=== PATIENT | female | born 1935 | race Caucasian/White ===

== ENCOUNTER 2016-11-07 09:18 | Observation (INO) | payer OTHER ==
[2016-11-07] VITALS (11 sets, daily range): BP systolic 107–144; BP diastolic 57–77; PULSE 61–82; RESP 14–18; Ht 154.9 cm; Wt 81.0 kg
[~2016-11-07] VITALS: Ht 154.9 cm; Wt 81.0 kg
[~2016-11-07 09:18] MED LIST: ALLO100T PO; AMLO5TAB4 PO; LIRICA; LOSA1TAB19 PO
[2016-11-07] MEDS ORDERED: SOD CHLORIDE 0.9% 1,000 ML IV SCH (10:00)
[2016-11-07] MEDS ORDERED: CEFAZOLIN 2 GM/50 ML (PMX) 50 ML IVPB ONE (10:00)
[2016-11-07] MEDS ORDERED: ALEN70TA30 PO (11:47)
[2016-11-07] MEDS ORDERED: VALS1TAB76 PO (11:52)
[2016-11-07] MEDS ORDERED: ASPI81TA3 PO (11:53)
[2016-11-07] MEDS ORDERED: BUPIVACAINE 0.5% (SDV) 30 ML INJ ONE (12:25)
[2016-11-07] MEDS ORDERED: ISOSULFAN BLUE 1% 5 ML INJ SC ONE (12:41)
[2016-11-07] MEDS ORDERED: PROPOFOL 20 ML ONE (12:54)
[2016-11-07] MEDS ORDERED: CEFAZOLIN 1 GM INJ ONE (12:54)
[2016-11-07] MEDS ORDERED: LIDOCAINE 2% (SDV) 5 ML INJ ONE (12:54)
[2016-11-07] MEDS ORDERED: ONDANSETRON 4 MG INJ ONE (12:55)
[2016-11-07] MEDS ORDERED: METOCLOPRAMIDE 10 MG INJ ONE (12:55)
[2016-11-07] MEDS ORDERED: MEPERIDINE 100 MG INJ ONE (12:55)
[2016-11-07] MEDS ORDERED: DIPHENHYDRAMINE 50 MG INJ IV PRN (13:00)
[2016-11-07] MEDS ORDERED: EPHEDrine SULFATE 50 MG/5 ML SYG IV PRN (13:00)
[2016-11-07] MEDS ORDERED: METOCLOPRAMIDE 10 MG INJ IV PRN (13:00)
[2016-11-07] MEDS ORDERED: MIDAZOLAM 1 MG/ML 2 ML INJ IV PRN (13:00)
[2016-11-07] MEDS ORDERED: ONDANSETRON 4 MG INJ IV PRN ×2 (13:00→15:00)
[2016-11-07] MEDS ORDERED: HYDROmorphONE (0.2 MG/ML) 10ML SYG IV PRN ×3 (13:00)
[2016-11-07] MEDS ORDERED: OXYCODONE/ACETAMINOPHEN (5/325) TAB PO PRN ×2 (13:00)
[2016-11-07] MEDS ORDERED: MEPERIDINE 25 MG INJ IV PRN (13:00)
[2016-11-07] MEDS ORDERED: FENTAnyl 50 MCG/ML VIAL IV PRN ×3 (13:00)
[2016-11-07] MEDS ORDERED: LABETALOL HCL 20MG INJ IV PRN (13:00)
--- NOTE | 2016-11-07 14:45 | OPR ---
Date/Time of Note Date/Time of Note DATE: 11/07/16 TIME: 14:42 Operative Report Preoperative Diagnosis Invasive cancer right breast Postoperative Diagnosis Same Operation/Procedure Performed Right needle directed partial mastectomy and axillary dissection Surgeon: CHRISTIAN HUERTA MD restaurant assistant: MARVIN FRANKLIN MD Anesthesia: general Estimated Blood Loss: 50 - 100 ml's Complications: None CHRISTIAN HUERTA MD Nov 07, 2016 14:45
[2016-11-07] MEDS ORDERED: D5W-0.45 NACL + KCL 20 MEQ 1,000 ML IV SCH (14:47)
[2016-11-07] MEDS ORDERED: morphine 2 MG INJ IV PRN (15:00)
[2016-11-07] MEDS ORDERED: ACETAMINOPHEN 1000MG/100ML IV 100 ML IVPB PRN (15:00)
--- NOTE | 2016-11-07 15:44 | OPR ---
DATE OF OPERATION: 11/07/2016 PREOPERATIVE DIAGNOSIS: 1. Ductal carcinoma in situ, right breast. Rule out invasion. 2. Palpable enlarged right axillary lymph nodes. POSTOPERATIVE DIAGNOSIS: 1. Ductal carcinoma in situ, right breast. Rule out invasion. 2. Palpable enlarged right axillary lymph nodes. OPERATIVE PROCEDURE: Needle directed right partial mastectomy and axillary dissection. ANESTHESIA: General. ANESTHESIOLOGIST: Sadia Keen MD INSTRUCTOR PHYSICAL EDUCATION: Gerardo Chapman MD INDICATIONS FOR PROCEDURE: The patient is an 81-year-old female, who underwent surveillance mammography and was found to have a suspicious area in her right breast. Core biopsy was positive for ductal carcinoma in situ and highly suspicious for microinvasion. On physical examination, the patient had a somewhat large palpable right axillary lymph node. Therefore, the patient and her family were counseled as to the need for a needle directed right partial mastectomy and axillary dissection based on the clinically palpable right axillary lymph nodes. They consented and she was scheduled for surgery. DESCRIPTION OF PROCEDURE: On the morning of surgery, patient presented to [facility] where she underwent localization of the lesion performed by attending radiologist, Dr. Dieudonne Pascual. Subsequently, she was brought to the operating theater, placed under general anesthesia. The right breast and axillary region was prepped and draped in the usual sterile fashion. Attention was 1st directed to performing the partial mastectomy. A curvilinear incision was made in the upper outer quadrant of the breast. This was in the region of the previously placed localization wire. Subcutaneous tissue was dissected with cautery. The skin edges were then elevated with skin hooks and wide circumferential dissection of the tissue associated with the wire took place using cautery, taking great care to ensure adequate margin. Specimen was elevated, transected, oriented, and sent for radiographic confirmation of capture. Capture was confirmed. The specimen was then sent for permanent pathologic analysis. The wound was irrigated, minimal bleeding was controlled with cautery, and the skin was reapproximated with 4-0 Vicryl suture in subcuticular fashion. Attention was then directed to performing the axillary dissection. A 4 cm incision was made in the right axillary hairline. Subcutaneous tissue was dissected with cautery down through the clavipectoral fascia. There was enlarged palpable lymph node immediately noted and there was a 2nd enlarged node next to it. Using blunt dissection along the chest wall, the long thoracic nerve was kept out of harm's way. More superiorly, the axillary vein and the thoracodorsal neurovascular bundle were identified and kept out of harm's way. This enlarged group of lymph nodes was then resected using LigaSure device. It was sent for intraoperative analysis performed by attending pathologist, Dr. Jerry Miranda. There was no obvious evidence of metastatic disease. Therefore, no further lymph nodes were taken. The specimen was sent for permanent pathologic analysis. The wound was then irrigated. A number 10 flat Foreign-Ledesma drain was then brought through the right mid axillary line, cut to size and laid within the axilla. It was secured in place with 2-0 nylon suture in the standard fashion and skin incision was reapproximated with 4-0 Vicryl suture in subcuticular fashion. Dermabond was then applied to both incisions. Patient tolerated the procedure well. Estimated blood loss was approximately 50 cc. There were no complications. The patient was transported in stable condition to the recovery room. Dictated By: Ovidio Vance MD /kavitha/francine /Document#: [id number] MAXIMINO
[2016-11-08 02:00] VITALS: BP 117/60; RESP 18
[2016-11-08 07:45] VITALS: BP 138/67; RESP 16
[2016-11-08] MEDS ORDERED: ASPIRIN 81 MG TAB PO SCH (09:00)
[2016-11-08] MEDS ORDERED: VALSARTAN 160 MG TAB PO SCH (09:00)
[2016-11-08] MEDS ORDERED: AMLODIPINE 5 MG TAB PO SCH (09:00)
[2016-11-08] MEDS ORDERED: HYDROCHLOROTHIAZIDE 12.5 MG CAP PO SCH (09:00)
[2016-11-08] MEDS ORDERED: ALLOPURINOL 100 MG TAB PO SCH (09:00)
[2016-11-08 14:20] VITALS: BP 139/71; RESP 16
--- NOTE | 2016-11-08 15:02 | HP ---
Date/Time of Note Date/Time of Note DATE: 11/08/16 TIME: 15:00 Assessment/Plan VTE Prophylaxis VTE Prophylaxis Intervention: other Lines/Catheters IV Catheter Type (from Nrs): Saline Lock Assessment/Plan Chief Complaint/Hosp Course 1) breast cancer - s/p mastectomy Problems: HPI/ROS Admit Date/Time Admit Date/Time Nov 07, 2016 at 15:28 Hx of Present Illness Patient with breast cancer comes in for mastectomy PMH/Family/Social Past Medical History Medical History: no pertinent history Past Surgical History Past Surgical Hx: no surgical history Social History Smoking Status: Never smoker Exam/Review of Systems Vital Signs Vitals Vital Signs Date Time Temp Pulse Resp B/P Pulse Ox O2 Delivery O2 Flow Rate FiO2 11/08/16 14:20 97.8 76 16 139/71 94 11/07/16 15:20 Room Air Intake and Output 11/07/16 11/07/16 11/08/16 15:00 23:00 07:00 Intake Total 850 ml 450 ml 250 ml Output Total 20 ml 30 ml 50 ml Balance 830 ml 420 ml 200 ml Exam Constitutional: well developed Head: atraumatic, normocephalic Neck: supple Respiratory: clear to auscultation Cardiovascular: regular rate and rhythm Gastrointestinal: non-tender, soft Extremities: normal pulses Medications Medications Current Medications Ondansetron HCl (Zofran Inj) 4 mg Q6H PRN IV NAUSEA AND/OR VOMITING; Start 11/07 at 15:00 Morphine Sulfate 2 mg 2 mg Q1H PRN IV PAIN; Start 11/07/16 at 15:00 Acetaminophen (Ofirmev 1000mg/ 100ml Iv) 100 ml @ 400 mls/hr Q6H PRN IVPB PAIN ; Start 11/07/16 at 15:00 Alendronate Sodium (Fosamax) 70 mg Q7D PO ; Start 11/13/16 at 06:30 Allopurinol (Zyloprim) 100 mg DAILY PO Last administered on 11/08/16 08:14; Admin Dose 100 MG; Start 11/08/16 at 09:00 Amlodipine Besylate (Norvasc) 5 mg DAILY PO Last administered on 11/08/16 08:14 ; Admin Dose 5 MG; Start 11/08/16 at 09:00 Aspirin (Aspirin) 81 mg DAILY PO Last administered on 11/08/16 08:14; Admin Dose 81 MG; Start 11/08/16 at 09:00 Valsartan (Diovan) 160 mg DAILY PO Last administered on 11/08/16 08:15; Admin Dose 160 MG; Start 11/08/16 at 09:00 Hydrochlorothiazide (Hydrochlorothiazide) 12.5 mg DAILY PO Last administered on 11/08/16 08:14; Admin Dose 12.5 MG; Start 11/08/16 at 09:00 WILI GOMEZ Nov 08, 2016 15:01
[2016-11-13] MEDS ORDERED: ALENDRONATE 70 MG TAB PO SCH (06:30)
== END 2016-11-08 16:20 | disposition home or self-care (01) ==
LOC: SDS 09:18 → PP2 15:28 → SDS 15:28 → PP2 15:28
PROVIDERS: ADMIT Surgery Surgical Oncology; ATTEND Surgery Surgical Oncology
DX: C50.511 Malignant neoplasm of lower-outer quadrant of right female breast (principal); I10 Essential (primary) hypertension; E66.9 Obesity, unspecified; Z68.33 Body mass index [BMI] 33.0-33.9, adult; R59.0 Localized enlarged lymph nodes
CPT/HCPCS: 19307; 88307; G0378; J0690; J2175; J2405; J2765; Q9968